=== PATIENT | male | born 1985 | race Caucasian/White ===

== ENCOUNTER 2017-02-03 12:33 | Emergency (ER) | payer BC ==
--- NOTE | 2017-02-03 12:48 | EDM.PDOC ---
ED HPI GENERAL MEDICAL PROBLEM - General Chief Complaint: Back Pain or Injury Stated Complaint: BACK PAIN Time Seen by Provider: 02/03/17 12:43 Source of Information: Reports: Patient History Limitations: Reports: No Limitations - History of Present Illness INITIAL COMMENTS - FREE TEXT/NARRATIVE: 31-year-old male attends the ED with gradually worsening of chronic low back pain. States initial prompt started back in 2011 and he was told initially that he had 3 bulging disks on MRI. He went through a series of chiropractic manipulations and improved and has had intermittent problems with low back since. Over the last year the pain has been increasing in frequency has to roll out of bed in the morning and takes a good hour and a half for the stiffness to ease up so that he can attend work and work functionally. Over the last 6-8 weeks things have worsened and to the point that it takes 3-4 hours before he is able to mobilize better in the workplace. By the end of the day he is in significant pain with both legs feeling numb and heavy. Has no problem with his bowel or bladder function. He states he walks like he 60 years old. He can't do most activities with his children which frustrates his . He has been using Motrin when necessary Aleve when necessary and Tylenol when necessary. 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), Movement Context: Denies: Activity, Exercise, Lifting, Sick Contact, Trauma Associated Symptoms: Reports: No Other Symptoms Treatments EXHIBITS MANAGER: Reports: Acetaminophen, NSAIDS (Motrin and Aleve.) Lower Back Pain Score (Numeric/FACES): 5 - Related Data Allergies Allergy/AdvReac Type Severity Reaction Status Date / Time No Known Allergies Allergy Verified 02/03/17 12:40 Home Meds: Home Meds Meloxicam 15 mg PO DAILY #21 tablet 02/03/17 [Rx] Past Medical History - Past Health History Medical/Surgical History: Denies Medical/Surgical History Musculoskeletal History: Reports: Back Pain, Chronic Social & Family History - Tobacco Use Smoking Status *Q: Never Smoker - Recreational Drug Use Recreational Drug Use: No - Living Situation & Occupation Living situation: Reports: Occupation: Employed ED ROS GENERAL - Review of Systems Review Of Systems: See Below Constitutional: Denies: Fever, Chills, Malaise, Weakness, Fatigue, Decreased Appetite, Weight Loss HEENT: Reports: No Symptoms Respiratory: Reports: No Symptoms Cardiovascular: Reports: No Symptoms Endocrine: Reports: No Symptoms GI/Abdominal: Reports: No Symptoms : Reports: No Symptoms Musculoskeletal: Reports: Back Pain (See history of present illness) Skin: Reports: No Symptoms Neurological: Reports: Paresthesia (Into both but talks and posterior legs. This is when his back pain), Difficulty Walking ( is the worst.walks very slowly ) Psychiatric: Reports: No Symptoms (by the end of the day due to pain in his back ) Hematologic/Lymphatic: Reports: No Symptoms Immunologic: Reports: No Symptoms ED EXAM,LOWER BACK PAIN/INJURY - Physical Exam Exam: See Below Exam Limited By: No Limitations General Appearance: Alert, WD/WN, Mild Distress (Moves quite slowly.) Respiratory/Chest: No Respiratory Distress, Lungs Clear, Normal Breath Sounds, No Accessory Muscle Use Cardiovascular: Normal Peripheral Pulses, Regular Rate, Rhythm, No Edema, No Murmur GI/Abdominal: Normal Bowel Sounds, Soft, Non-Tender, No Organomegaly, No Abnormal Bruit, No Mass, Pelvis Stable Back Exam: Normal Inspection, Decreased Range of Motion, Paraspinal Tenderness ( Mild paraspinal tenderness bilaterally from L3-L4 5. But there is no overlying muscle spasm.), Other (Both SI joints right greater than left are very tender to palpation in the superior half). No: Full Range of Motion (Loss of 20 forward flexion. Cannot touch his kneecaps), CVA Tenderness (L), CVA Tenderness (R), Vertebral Tenderness Extremities: Normal Inspection, Normal Range of Motion, Non-Tender, No Pedal Edema, Other (Full unopposed range of motion of his hips although it does aggravate his low back pain. Also crossing his legs at the knees with compression of the pelvis does exacerbate his pain in the SI joints.) Neurological: Alert, Normal Mood/Affect, Normal Dorsiflexion, CN II-XII Intact, Normal Reflexes, No Motor/Sensory Deficits, Oriented x 3 DTR - Lower Extremities: 1+: Ankle (R), Ankle (L), 2+: Knee (R), Knee (L) Psychiatric: Normal Affect, Normal Mood Skin Exam: Warm, Dry, Intact, Normal Color, No Rash Course - Vital Signs Last Recorded V/S: Last Vital Signs Temp 36.2 C 02/03/17 12:37 Pulse 62 02/03/17 12:37 Resp 16 02/03/17 12:37 BP 126/84 02/03/17 12:37 Pulse Ox 97 02/03/17 12:37 - Orders/Labs/Meds Orders: Active Orders 24 hr Category Date Time Status Lumbar Spine 2 or 3V [CR] Stat Exams 02/03/17 12:59 Taken - Radiology Interpretation Free Text/Narrative:: 31-year-old male presents the ED with gradually worsening low back pain for the last year but particularly bad the last 6828 weeks. Constant discomfort in his low back has to roll out of bed in the mornings. Takes 3-4 hours to loosen up once he attends work. By the end of the day he is like an invalid. States he walks like a 60-year-old man. Limits of courses of enjoyment of other activities particular playing with his children etc. He does have referred pain into but talks and lower legs with paresthesias. Examination however is straight leg raising was to 60 bilaterally with no sign of nerve root impingement. Possible central disc herniation higher up at L2 or 3. Does have bilateral sacroiliitis on examination. Plan plain films i.e. AP and lateral of his L-spine to be done. As of the prolongation of his symptoms and his request MRI of his lumbar spine will be ordered. He plans on following up with Dr. Davies for the results of the test and to see if anything further needs to be done other than physiotherapy or work hardening program etc. I will place him on meloxicam 15 mg once daily for 21 days as a trial to see if it alleviates his pain and inflammation. - Re-Assessments/Exams Free Text/Narrative Re-Assessment/Exam: 02/03/17 13:23 AP and lateral views of the lumbar spine revealed degenerative disc disc disease at L5-S1. The remainder the bones and disc spaces are well maintained. There is slight narrowing at the T12-L1 level. The foramina appear patent. The alignment is normal with no spondylosis listhesis. Departure - Departure Time of Disposition: 13:31 Disposition: Home, Self-Care 01 Condition: Fair Clinical Impression: (Ruled Out): Low back pain of over 3 months duration - Discharge Information Prescriptions: Meloxicam 15 mg PO DAILY #21 tablet Referrals: PCP,None [Primary Care Provider] - Forms: ED Department Discharge Additional Instructions: Evaluation the emergency room today in regards to gradually increasing low back pain over the last several months. Previously told 3 bulged disks from MRI done in 2011. No specific injuries to the low back identified in terms of major trauma. X-rays of the low back today reveal normal alignment. There is slight disc thinning at T12-L1 level but apparent marked disc degeneration at the lumbar 5 S1 joint which is the lowest part of are back. I suspect this is where her pain is coming from. Therefore an MRI will be ordered annual can follow-up with Dr. Santiago 2 days after the MRI is been completed for the results and see how best to manage this problem. I would suggest a trial of anti-inflammatory such as meloxicam 15 mg once daily for a period of 3 weeks to see whether or not it alleviates her pain and inflammation. It can always be refilled if it's helpful however if it's not helpful after 21 days it should be discontinued. His call Dr. Davies office to arrange an appointment his number is . MRI has been booked for Monday the at 0930 hrs. in the morning. Expect the test to take a good hour to an hour and a half. - My Orders Last 24 Hours: My Active Orders 02/03/17 12:59 Lumbar Spine 2 or 3V [CR] Stat - Assessment/Plan Last 24 Hours: My Active Orders 02/03/17 12:59 Lumbar Spine 2 or 3V [CR] Stat
--- NOTE | 2017-02-05 19:59 | CR ---
Lumbar spine: AP, lateral and coned-down lateral views centered to the lumbosacral junction were obtained. Comparison: Previous MRI lumbar spine study of 12/13/12. Mild posterior disc space narrowing is seen at L5-S1. Other disc spaces are maintained. Vertebral body heights are maintained. Pedicles as well as transverse and spinous processes are intact. Sacroiliac joints appear within normal limits. Impression: 1. Posterior disc space narrowing at L5-S1. 2. Three-view lumbar spine study is otherwise unremarkable. Diagnostic code #2
== END 2017-02-03 13:45 | disposition home or self-care (01) ==
LOC: JD.ED 12:33
DX: G89.29 Other chronic pain (principal); M54.5 Low back pain
CPT/HCPCS: 72100; 72100-26; 99283